=== PATIENT | female | born 1975 | race Caucasian/White ===

== ENCOUNTER 2020-12-04 18:13 | Inpatient (IN) | payer MEDICAID ==
[~2020-12-04] VITALS: Ht 165.1 cm; Wt 88.2 kg
[2020-12-04] MEDS ORDERED: acetaminophen 325mg tablet PO ONE (18:50)
--- NOTE | 2020-12-04 19:11 | NUR ---
LABS DRAWN, GIVEN TYLENOL. PT TALKING WITH HER , WHO IS INPATIENT HERE, ON A VIDEO PHONE CALL. PT ENCOURAGED NOT TO TALK MUCH SHE IS GETTING SOB WITH LENGTHY CHATTING. PT IS AWARE OF THIS AND REPORTS SHE IS VERY ANXOUS.
[2020-12-04] MEDS ORDERED: ALBU8HFA PO (19:20)
[2020-12-04] MEDS ORDERED: LORazepam 2 mg/ml vial IM ONE (19:20)
[2020-12-04] MEDS ORDERED: BUDE10.22 INH (19:20)
[2020-12-04] MEDS ORDERED: LORA10TA7 PO (19:20)
[2020-12-04] MEDS ORDERED: TRAZ-251 PO (19:20)
[2020-12-04] MEDS ORDERED: BUSP30TA3 PO (19:20)
[2020-12-04] MEDS ORDERED: ESTR0.9T2 PO (19:20)
[2020-12-04] MEDS ORDERED: THYR90TA PO (19:20)
[2020-12-04] MEDS ORDERED: ALBUTEROL INHALER 1 PUFF/90 MCG INHALER IH PRN (19:30)
[2020-12-04 19:33] LABS: D-DIMER 0.25 MG/L FEU (0-0.50)
[2020-12-04] MEDS ORDERED: LORazepam 2 mg/ml vial IV ONE (19:35)
[2020-12-04] MEDS ORDERED: potassium Cl 40MEQ/1/2NS 520ml 520 ML IV PRN ×2 (19:40)
[2020-12-04] MEDS ORDERED: magnesium hydroxide 30ml (MOM) UD suspension PO PRN (19:40)
[2020-12-04] MEDS ORDERED: potassium Cl 20 mEq SR tablet PO PRN ×2 (19:40)
[2020-12-04] MEDS ORDERED: acetaminophen 325mg tablet PO PRN (19:40)
[2020-12-04] MEDS ORDERED: mag hydrox/Alum hydrox/simeth 30ml oral suspension PO PRN (19:40)
[2020-12-04] MEDS ORDERED: magnesium 2GM in 50ml NS 50 ML IV PRN (19:40)
[2020-12-04] MEDS ORDERED: ondansetron/PF 4mg/2ml inj IV PRN (19:40)
[2020-12-04] MEDS ORDERED: magnesium 4gm in 100ml NS 100 ML IV PRN (19:40)
[2020-12-04] MEDS ORDERED: iohexol 350MG/ML 100ml bottle IV ONE (19:47)
[2020-12-04 19:49] LABS: C-REACTIVE PROTEIN 1.33 MG/DL (0.0-0.5); FERRITIN 226 NG/ML (8-252); LACTATE DEHYDROGENASE 238 U/L (81-234); TROPONIN I < 0.04 NG/ML (0.0-0.05)
[2020-12-04] MEDS: K and/or MAG REPLACEMENT MC SCH (20:00)
[2020-12-04] MEDS: busPIRone 15mg tablet PO SCH (21:13)
[2020-12-04] MEDS: enoxaparin 40mg/0.4ml syringe SQ SCH (21:13)
[2020-12-04] MEDS: traZODone 50mg tablet PO SCH (21:13)
[2020-12-04] MEDS: normal saline 1000ml 1,000 ML IV SCH (21:14)
[2020-12-04] MEDS ORDERED: DICL100T2 PO (21:15)
[2020-12-04] MEDS ORDERED: SUMA25TA35 PO (21:15)
[2020-12-04] MEDS ORDERED: EST1T PO (21:15)
[2020-12-04] MEDS ORDERED: IBUP-1985 PO (21:15)
--- NOTE | 2020-12-04 22:00 | NUR ---
Patient in ER. I have received report from Sherry DAVIS and had the opportunity to ask questions and assume patient care.
[2020-12-04 22:30] VITALS: BP 101/74
--- NOTE | 2020-12-05 02:22 | NUR ---
PAGER ID: [phone] MESSAGE: Cristobal Terry Pt in [address]; admitted today for NITESH, mary. states she is having "lung pain" and feeling SOB. She is oxygenating well on 2L. Nothing ordered for pain. Please advise. gave orders for morphine will place accordingly.
[2020-12-05] MEDS ORDERED: morphine 2 MG/ML inj. syringe IV PRN (02:25)
[2020-12-05 02:30] VITALS: BP 106/71
[2020-12-05] MEDS: normal saline 1000ml 1,000 ML IV SCH ×2 (02:39→17:05)
--- NOTE | 2020-12-05 06:38 | NUR ---
Problems reprioritized. Patient report given, questions answered & plan of care reviewed with Fanta DAVIS.
[2020-12-05 07:00] VITALS: BP 124/74
--- NOTE | 2020-12-05 07:19 | NUR ---
Patient in room [facility]018. I have received report from SUSAN Terry and had the opportunity to ask questions and assume patient care.
[2020-12-05] MEDS: DEXAMETHASONE 6 MG TABLET PO SCH (07:51)
[2020-12-05] MEDS: busPIRone 15mg tablet PO SCH ×2 (07:51→20:26)
[2020-12-05] MEDS: vitamin D (cholecalciferol) 1,000 unit tablet PO SCH (07:51)
[2020-12-05] MEDS: zinc sulfate 220mg capsule PO SCH ×3 (07:51→20:26)
[2020-12-05] MEDS: loratadine 10mg tablet PO SCH (07:51)
[2020-12-05] MEDS: ascorbic acid 500mg tablet PO SCH ×3 (07:51→17:05)
[2020-12-05] MEDS: thyroid, pork 30mg tablet PO SCH (07:51)
[2020-12-05] MEDS: nicotine 21mg patch - 24 hr TD SCH (07:52)
[2020-12-05] MEDS: K and/or MAG REPLACEMENT MC SCH ×2 (08:00→20:00)
[2020-12-05] MEDS: morphine 2 MG/ML inj. syringe IV PRN ×4 (08:29→23:37)
[2020-12-05 08:34] LABS: BASOPHILS % (AUTO) 0.5 % (0-1); EOSINOPHILS % (AUTO) 0.1 % (0-6); HEMATOCRIT 42.2 % (35.0-45.0); HEMOGLOBIN 14.5 g/dl (12.0-16.0); LYMPHOCYTES # (AUTO) 0.8 X10'3 (1.1-4.8); LYMPHOCYTES % (AUTO) 17.6 % (21-51); MEAN CORPUSCULAR HEMOGLOBIN 33.2 PG (27.0-31.0); MEAN CORPUSCULAR HGB CONC 34.3 g/dL (33.0-36.5); MEAN CORPUSCULAR VOLUME 96.7 FL (78-98); MEAN PLATELET VOLUME 8.2 FL (7.4-10.4); MONOCYTES # (AUTO) 0.3 X10'3 (0-0.9); MONOCYTES % (AUTO) 6.4 % (2-12); NEUTROPHILS # (AUTO) 3.3 X10'3 (1.8-7.7); NEUTROPHILS % (AUTO) 75.4 % (42-75); PLATELET COUNT 172 X10'3 (140-440); RED BLOOD COUNT 4.37 X10'6 (4.20-5.60); RED CELL DISTRIBUTION WIDTH 13.2 % (11.5-14.5); WHITE BLOOD COUNT 4.3 X10'3 (4.5-11.0)
[2020-12-05 09:04] LABS: ALANINE AMINOTRANSFERASE 64 U/L (12-78); ALBUMIN 2.8 G/DL (3.4-5.0); ALBUMIN/GLOBULIN RATIO 0.7 (1.1-1.5); ALKALINE PHOSPHATASE 62 IU/L (46-116); ANION GAP 10 (8-16); ASPARTATE AMINO TRANSFERASE 38 U/L (10-37); BILIRUBIN,TOTAL 0.2 MG/DL (0.1-1.0); BLOOD UREA NITROGEN 11 MG/DL (7-18); C-REACTIVE PROTEIN 1.29 MG/DL (0.0-0.5); CALCIUM 8.5 MG/DL (8.5-10.1); CHLORIDE 109 MMOL/L (99-107); CREATININE 0.55 MG/DL (0.40-0.90); GLUCOSE 116 MG/DL (70-104); MAGNESIUM 1.9 MG/DL (1.5-2.4); POTASSIUM 3.9 MMOL/L (3.5-5.1); SODIUM 143 MMOL/L (135-145); TOTAL CARBON DIOXIDE 24.5 MMOL/L (24-32); TOTAL PROTEIN 6.6 G/DL (6.4-8.2); eGFR > 90 ML/MIN
[2020-12-05] MEDS: pantoprazole 40mg Tablet.DR PO SCH (12:29)
[2020-12-05] MEDS: LORazepam 1 MG tablet PO PRN (17:05)
--- NOTE | 2020-12-05 18:35 | NUR ---
Problems reprioritized. Patient report given, questions answered & plan of care reviewed with SUSAN Terry.
--- NOTE | 2020-12-05 18:54 | NUR ---
Patient in room [facility]018. I have received report from Fanta DAVIS and had the opportunity to ask questions and assume patient care.
[2020-12-05 19:45] VITALS: BP 129/77
[2020-12-05] MEDS: enoxaparin 40mg/0.4ml syringe SQ SCH (20:26)
[2020-12-05] MEDS: traZODone 50mg tablet PO SCH (20:26)
[2020-12-05 22:30] VITALS: BP 115/85
[2020-12-06] MEDS: LORazepam 1 MG tablet PO PRN ×2 (02:18→13:51)
[2020-12-06] MEDS: normal saline 1000ml 1,000 ML IV SCH ×2 (02:19→11:40)
[2020-12-06 02:35] VITALS: BP 122/80
[2020-12-06] MEDS: morphine 2 MG/ML inj. syringe IV PRN ×3 (04:50→16:34)
[2020-12-06 06:00] VITALS: BP 110/70
--- NOTE | 2020-12-06 06:28 | NUR ---
Problems reprioritized. Patient report given, questions answered & plan of care reviewed with Mell DAVIS.
--- NOTE | 2020-12-06 06:33 | NUR ---
Patient in room [facility]018. I have received report from SUSAN Terry and had the opportunity to ask questions and assume patient care.
[2020-12-06] MEDS: DEXAMETHASONE 6 MG TABLET PO SCH (07:17)
[2020-12-06] MEDS: pantoprazole 40mg Tablet.DR PO SCH (07:17)
[2020-12-06] MEDS: zinc sulfate 220mg capsule PO SCH ×2 (07:17→13:49)
[2020-12-06] MEDS: vitamin D (cholecalciferol) 1,000 unit tablet PO SCH (07:17)
[2020-12-06] MEDS: loratadine 10mg tablet PO SCH (07:17)
[2020-12-06] MEDS: thyroid, pork 30mg tablet PO SCH (07:17)
[2020-12-06] MEDS: busPIRone 15mg tablet PO SCH (07:17)
[2020-12-06] MEDS: ascorbic acid 500mg tablet PO SCH ×2 (07:17→13:49)
[2020-12-06] MEDS: nicotine 21mg patch - 24 hr TD SCH (07:18)
[2020-12-06] MEDS: K and/or MAG REPLACEMENT MC SCH (08:00)
[2020-12-06 08:13] LABS: BASOPHILS % (AUTO) 0.1 % (0-1); EOSINOPHILS % (AUTO) 0 % (0-6); HEMATOCRIT 38.8 % (35.0-45.0); HEMOGLOBIN 13.2 g/dl (12.0-16.0); LYMPHOCYTES # (AUTO) 1.8 X10'3 (1.1-4.8); LYMPHOCYTES % (AUTO) 16.2 % (21-51); MEAN CORPUSCULAR VOLUME 96.9 FL (78-98); MEAN PLATELET VOLUME 8.1 FL (7.4-10.4); MONOCYTES # (AUTO) 0.8 X10'3 (0-0.9); MONOCYTES % (AUTO) 6.8 % (2-12); NEUTROPHILS # (AUTO) 8.7 X10'3 (1.8-7.7); NEUTROPHILS % (AUTO) 76.9 % (42-75); PLATELET COUNT 169 X10'3 (140-440); RED BLOOD COUNT 4.01 X10'6 (4.20-5.60); RED CELL DISTRIBUTION WIDTH 13.5 % (11.5-14.5); WHITE BLOOD COUNT 11.3 X10'3 (4.5-11.0)
[2020-12-06 08:29] LABS: ALANINE AMINOTRANSFERASE 78 U/L (12-78); ALBUMIN 2.5 G/DL (3.4-5.0); ALBUMIN/GLOBULIN RATIO 0.8 (1.1-1.5); ALKALINE PHOSPHATASE 55 IU/L (46-116); ANION GAP 6 (8-16); ASPARTATE AMINO TRANSFERASE 42 U/L (10-37); BILIRUBIN,TOTAL 0.2 MG/DL (0.1-1.0); BLOOD UREA NITROGEN 12 MG/DL (7-18); BUN/CREATININE RATIO 25.5 (6.6-38.0); CALCIUM 7.9 MG/DL (8.5-10.1); CHLORIDE 112 MMOL/L (99-107); CREATININE 0.47 MG/DL (0.40-0.90); GLUCOSE 90 MG/DL (70-104); POTASSIUM 3.7 MMOL/L (3.5-5.1); SODIUM 142 MMOL/L (135-145); TOTAL CARBON DIOXIDE 23.7 MMOL/L (24-32); TOTAL PROTEIN 5.8 G/DL (6.4-8.2); eGFR > 90 ML/MIN
[2020-12-06] MEDS ORDERED: DEXA2TAB PO (10:29)
[2020-12-06] MEDS ORDERED: HYDR-3965 PO (10:29)
[2020-12-06 11:10] LABS: D-DIMER < 0.19 MG/L FEU (0-0.50)
--- NOTE | 2020-12-06 11:15 | NUR ---
Brianne field case manager contacted about getting a ride home for pt. and temporary disability per pt request. Brianne will contact social worker clinical and call back later.
[2020-12-06 11:30] VITALS: BP 122/77
--- NOTE | 2020-12-06 14:08 | NUR ---
House Sup okayed [facility] to [facility] . Pt needs to wear proper PPE and have a sulfuric acid plant operator with her.
--- NOTE | 2020-12-06 17:29 | NUR ---
Pt discharged home in stable condition. medication and discharge instructions given to pt. Pt was able to visit in CICU prior discharge. Pt left the hospital via [facility].
== END 2020-12-06 16:54 | disposition home or self-care (01) | DRG 137 ==
LOC: ER 18:13 → ED HOLD 19:37 → ORTHO 4S 22:10
PROVIDERS: ADMIT Family Medicine; ATTEND Family Medicine
PROC: B32T1ZZ Computerized Tomography (CT Scan) of Left Pulmonary Artery using Low Osmolar Contrast (ICD-10-PCS; principal; 2020-12-04)
PROC: B3201ZZ Computerized Tomography (CT Scan) of Thoracic Aorta using Low Osmolar Contrast (ICD-10-PCS; 2020-12-04)
PROC: B32S1ZZ Computerized Tomography (CT Scan) of Right Pulmonary Artery using Low Osmolar Contrast (ICD-10-PCS; 2020-12-04)
DX: U07.1 COVID-19 (principal); J96.01 Acute respiratory failure with hypoxia; J12.82 Pneumonia due to coronavirus disease 2019; J44.0 Chronic obstructive pulmonary disease with (acute) lower respiratory infection; E07.9 Disorder of thyroid, unspecified; F17.210 Nicotine dependence, cigarettes, uncomplicated; F41.9 Anxiety disorder, unspecified; Z79.51 Long term (current) use of inhaled steroids; Z80.0 Family history of malignant neoplasm of digestive organs; Z83.3 Family history of diabetes mellitus; Z90.710 Acquired absence of both cervix and uterus; Z88.8 Allergy status to other drugs, medicaments and biological substances; Z79.899 Other long term (current) drug therapy; Z98.51 Tubal ligation status; Z71.6 Tobacco abuse counseling
CPT/HCPCS: 36415; 71045; 71275; 80053; 82728; 83615; 83735; 83880; 84145; 84484; 85025; 85379; 85384; 86140; 87081; 97161; 97530; 99285; J1650; J2060; J2270; J7030; J8540; Q9967